=== PATIENT | female | born 1990 ===

== ENCOUNTER 2019-01-27 11:50 | Outpatient (CLI) | payer OTHER | END 2019-01-27 11:54 | disposition home or self-care (01) | LOC: RX STUDY 11:50 | DX: N70.03 Acute salpingitis and oophoritis (principal) ==

== ENCOUNTER → 2019-06-19 | Emergency (ER) | payer OTHER ==
[~2019-06-19] VITALS: Ht 154.9 cm; Wt 59.9 kg
[~2019-06-19] MED LIST: PRENATA CHEWAB1 EACH
== END | disposition left against medical advice (07) ==
LOC: ER 00:33
DX: Z53.20 Procedure and treatment not carried out because of patient's decision for unspecified reasons (principal)

== ENCOUNTER 2019-11-02 12:08 | Outpatient (CLI) | payer OTHER | END 2019-11-02 17:19 | disposition home or self-care (01) | LOC: OBS/DEL 12:08 | DX: O26.893 Other specified pregnancy related conditions, third trimester (principal); J06.9 Acute upper respiratory infection, unspecified ==

== ENCOUNTER 2019-12-28 05:18 | Inpatient (IN) | payer OTHER ==
[~2019-12-28] VITALS: Ht 154.9 cm; Wt 70.3 kg
[2019-12-28] MEDS ORDERED: VALTREX1000 MG PO (05:56)
[2019-12-29] MEDS ORDERED: CETIRIZINE HCL10 MG PO (09:12)
== END 2019-12-30 11:19 | DRG 807 ==
LOC: LDR 05:18 → OB/GYN 05:18
PROVIDERS: ADMIT Obstetrics & Gynecology; ATTEND Obstetrics & Gynecology
PROC: 10E0XZZ Delivery of Products of Conception, External Approach (ICD-10-PCS; principal; 2019-12-28)
PROC: 4A0HXFZ Measurement of Products of Conception, Cardiac Rhythm, External Approach (ICD-10-PCS; 2019-12-28)
DX: O80 Encounter for full-term uncomplicated delivery (principal); Z37.0 Single live birth; Z3A.39 39 weeks gestation of pregnancy

== ENCOUNTER 2020-12-19 05:52 | Inpatient (IN) | payer OTHER ==
[~2020-12-19] VITALS: Ht 154.9 cm; Wt 81.6 kg
[~2020-12-19 05:52] MED LIST changes: +CETIRIZINE HCL10 MG PO; +VALTREX1000 MG PO
== END 2020-12-21 10:54 | disposition home or self-care (01) | DRG 807 ==
LOC: OB/GYN 05:52 → LDR 05:52 → OB/GYN 10:24
PROVIDERS: ADMIT Obstetrics & Gynecology; ATTEND Obstetrics & Gynecology
PROC: 10E0XZZ Delivery of Products of Conception, External Approach (ICD-10-PCS; principal; 2020-12-19)
PROC: 10907ZC Drainage of Amniotic Fluid, Therapeutic from Products of Conception, Via Natural or Artificial Opening (ICD-10-PCS; 2020-12-19)
PROC: 4A1HXFZ Monitoring of Products of Conception, Cardiac Rhythm, External Approach (ICD-10-PCS; 2020-12-19)
DX: O80 Encounter for full-term uncomplicated delivery (principal); Z37.0 Single live birth; Z3A.39 39 weeks gestation of pregnancy; Z20.822 Contact with and (suspected) exposure to COVID-19